=== PATIENT | female | born 1995 | race Caucasian/White ===

== ENCOUNTER 2016-06-22 08:59 | Day surgery (SDC) | payer BC, OTHER ==
[~2016-06-22 08:59] MED LIST: ACETAMINOPHEN 500 MG TAB PO ONE; PREGABALIN 150 MG CAP PO ONE; ceFAZolin 2 GM/DEXTROSE 100 ML IV ONE
[2016-06-22] MEDS ORDERED: OXYCODONE/APAP 5/325 TAB PO PRN (09:12)
[2016-06-22] MEDS ORDERED: ACETAMINOPHEN 500 MG TAB ONE (09:14)
[2016-06-22] MEDS ORDERED: CEFAZOLIN 2 GM/DEXTROSE/100 ML BAG IV ONE (09:15)
[2016-06-22] MEDS ORDERED: PREGABALIN 150 MG CAP ONE (09:15)
[2016-06-22] MEDS ORDERED: LIDOCAINE 1% 2 ML INJ ONE (09:15)
[2016-06-22] MEDS ORDERED: SCOPOLAMINE HYDROBROMIDE 1.5 MG PATCH TD ONE (09:30)
[2016-06-22] MEDS ORDERED: LR 1,000 ML IV ONE (09:32)
[2016-06-22] MEDS ORDERED: fentaNYL 100 MCG/2 ML INJ ONE (15:24)
[2016-06-22] MEDS ORDERED: LABETALOL HCL 50 MG/10 ML SYR ONE (17:34)
== END 2016-06-22 20:25 | disposition home or self-care (01) ==
LOC: FSGY 08:59
PROVIDERS: ATTEND Orthopaedic Surgery Sports Medicine
PROC: 0SQ94ZZ Repair Right Hip Joint, Percutaneous Endoscopic Approach (ICD-10-PCS; principal; 2016-06-22 10:30)
DX: M25.851 Other specified joint disorders, right hip (principal); Q65.89 Other specified congenital deformities of hip; M94.251 Chondromalacia, right hip
CPT/HCPCS: C1713; C1769; J0690; J3010